=== PATIENT | male | born 1990 | race Caucasian/White ===

== ENCOUNTER 2020-07-29 18:18 | Inpatient (IN) | payer BC ==
[~2020-07-29] VITALS: Ht 167.6 cm; Wt 65.3 kg
[~2020-07-29 18:18] MED LIST: AKWA TEARS15 ML LEFT EYE; ALBUTEROL2.5 MG/3 M INH; BPO TP; CELEXA20 MG PT; CHLORHEXIDINE473 M1 PO; CLEOCIN T60 M1 TOPICAL; DOXYCYCLINE HY100 M2 PT; ERYTHROMYCIN OPT1 GM EACH EYE; KEPPRA500 MG GT; LACRI-LUBE S.O3.5 G1 LEFT EYE; LIPITOR20 MG PT; MIRALAX17 GM PT; OPTIVE SENSITI1 EACH EACH EYE
--- NOTE | 2020-07-29 18:27 | NUR ---
HIS MOM BROUGHT HIM FROM [facility], HE ANSWERS YES/NO TO QUESTIONS. THE BED ALARM IS ON AND THE CALL LIGHT IS WITHIN REACH. HE IS WEARING PAM HOSE. HE HAS AN INCISION TO THE LEFT SIDE OF HIS HEAD WITH SUTURES.
[2020-07-29] MEDS ORDERED: BACLOFEN10 MG PO (18:37)
[2020-07-29] MEDS ORDERED: ULTRAM50 MG PO (18:38)
[2020-07-29] MEDS ORDERED: NORVASC2.5 MG PO (18:39)
[2020-07-29 18:55] VITALS: BP 143/93; BMI 23.3
--- NOTE | 2020-07-29 20:00 | NUR ---
PATIENT RECEIVED LAYING IN BED. ASSESSMENT & VITAL SIGNS DONE. NO C/O PAIN OR DISTRESS. BED LOW. ALARM ON. CALL LIGHT WITHIN REACH. WILL CONTINUE TO MONITOR.
[2020-07-29 20:24] VITALS: BP 143/93
--- NOTE | 2020-07-30 00:14 | NUR ---
I have reviewed this patient and I concur with the Shift Assessment completed by the Licensed Practical Nurse today this shift.
--- NOTE | 2020-07-30 01:30 | NUR ---
PATIENT EYES CLOSED. RESPIRATIONS 18 & EVEN. BED LOW. ALARM ON. CALL LIGHT & BEDSIDE TABLE WITHIN REACH. WILL CONTINUE TO MONITOR.
--- NOTE | 2020-07-30 07:44 | NUR ---
PT RESTING IN BED WITH EYES OPEN CALL LIGHT IN REACH NO PROBLEMS WILL MONITER
[2020-07-30 07:47] LABS: BASOPHILS 0.1 % (0-2); HEMATOCRIT 41.4 % (42.0-54.0); HEMOGLOBIN 13.6 g/dL (13.5-17.5); IMMATURE GRANULOCYTES 0.4 % (0-5); LYMPHOCYTE ABS# 2.63 10x3/uL (1.32-3.57); MCH 28.5 pg (26.0-34.0); MCHC 32.9 g/dL (31.0-37.0); MCV 86.8 fL (80.0-100.0); MEAN PLATELET VOLUME 9.9 fL (7.4-10.4); MONOCYTES 11.4 % (2-11); NEUTROPHIL ABS# 3.73 10x3/uL (1.78-5.38); NEUTROPHILS 51.1 % (40-80); PLATELET COUNT 171 10x3/uL (130-400); RBC 4.77 10x6/uL (4.20-6.10); RDW 14.9 % (11.5-14.5); WBC 7.3 10x3/uL (4.8-10.8)
[2020-07-30 08:27] LABS: CALC OSMOLALITY 285 mosm/kg (275-300); CARBON DIOXIDE 30.3 mmol/L (21.0-32.0); CHLORIDE - SERUM 106 mmol/L (98-107); CREATININE - SERUM 0.9 mg/dL (0.6-1.3); GLUCOSE 88 mg/dL (74-106); POTASSIUM - SERUM 3.5 mmol/L (3.5-5.1); SODIUM 143 mmol/L (136-145); UREA NITROGEN 19 mg/dL (7-18); eGFR NON AFRICAN AMERICAN > 90 mL/min (90-120)
[2020-07-30 09:21] VITALS: BP 129/93
[2020-07-30 11:57] VITALS: Ht 167.6 cm; Wt 65.3 kg
--- NOTE | 2020-07-30 17:41 | NUR ---
PT RESTING IN BED WITH EYES OPEN CALL LIGHT IN REACH NO PROBLEMS WILL MONITER
[2020-07-30 19:00] VITALS: BP 97/54
--- NOTE | 2020-07-30 20:00 | NUR ---
PATIENT RECEIVED LAYING IN BED. ASSESSMENT & VITAL SIGNS DONE. PAIN MEDICATION EFFECTIVE. BED LOW. ALARM ON. CALL LIGHT & BEDSIDE TABLE WITHIN REACH. WILL CONTINUE TO MONITOR.
--- NOTE | 2020-07-31 03:26 | NUR ---
I have reviewed this patient and I concur with the Shift Assessment completed by the Licensed Practical Nurse today this shift.
--- NOTE | 2020-07-31 04:43 | NUR ---
PATIENT AWAKE. LEFT EYE DROP IN. BED LOW. ALARM ON. CALL LIGHT WITHIN REACH. WILL CONTINUE TO MONITOR.
--- NOTE | 2020-07-31 08:00 | NUR ---
PT RESTING IN BED WITH EYES OPEN NO CONCERNS AT THIS TIME CALL LIGHT IN REACH WILL MONITER
[2020-07-31 09:02] VITALS: BP 107/64
--- NOTE | 2020-07-31 17:46 | NUR ---
PT IN BED EATING SUPPER TOLERATING WELL CALL LIGHT IN REACH WILL MONITER
[2020-07-31 19:00] VITALS: BP 106/72
--- NOTE | 2020-07-31 19:29 | NUR ---
PATIENT RECEIVED LAYING IN BED. ASSESSMENT & VITAL SIGNS DONE. BED LOW. ALARM ON. CALL LIGHT WITHIN REACH. WILL CONTINUE TO MONITOR.
--- NOTE | 2020-08-01 03:39 | NUR ---
PATIENT EYES CLOSED. RESPIRATIONS 18 & EVEN. BED LOW. CALL LIGHT & URINAL WITHIN REACH. ALARM ON. WILL CONTINUE TO MONITOR.
--- NOTE | 2020-08-01 07:59 | NUR ---
HE HAS BEEN WALKING WITH PT. HE IS NOW IN BED. DENIES ANY PAIN OR NEEDS AT THIS TIME. HE HAS THE INCISION OVER HIS LEFT EYE TO THE BACK OF HIS EAR. THE BED ALARM IS ON AND THE CALL LIGHT IS WITHIN REACH.
[2020-08-01 08:17] LABS: BASOPHILS 0.2 % (0-2); EOSINOPHILS 3.8 % (0-7); HEMATOCRIT 42.9 % (42.0-54.0); HEMOGLOBIN 14.5 g/dL (13.5-17.5); LYMPHOCYTE ABS# 1.85 10x3/uL (1.32-3.57); LYMPHOCYTES 30.6 % (15-50); MCH 28.6 pg (26.0-34.0); MCHC 33.8 g/dL (31.0-37.0); MCV 84.6 fL (80.0-100.0); MEAN PLATELET VOLUME 9.7 fL (7.4-10.4); MONOCYTES 8.4 % (2-11); NEUTROPHIL ABS# 3.38 10x3/uL (1.78-5.38); PLATELET COUNT 178 10x3/uL (130-400); RBC 5.07 10x6/uL (4.20-6.10); RDW 14.3 % (11.5-14.5)
[2020-08-01 08:18] LABS: CALC OSMOLALITY 282 mosm/kg (275-300); CARBON DIOXIDE 28.2 mmol/L (21.0-32.0); CHLORIDE - SERUM 104 mmol/L (98-107); CREATININE - SERUM 0.8 mg/dL (0.6-1.3); GLUCOSE 95 mg/dL (74-106); POTASSIUM - SERUM 3.8 mmol/L (3.5-5.1); SODIUM 141 mmol/L (136-145); UREA NITROGEN 18 mg/dL (7-18); eGFR NON AFRICAN AMERICAN > 90 mL/min (90-120)
[2020-08-01 08:24] VITALS: BP 109/71
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
[2020-08-01 19:33] VITALS: BP 111/74
--- NOTE | 2020-08-02 01:41 | NUR ---
PT RESTING WITH EYES CLOSED, AROUSED EASILY WHILE EMPTYING 200ML OF YELLOW URINE FROM URINAL. WHEN ASKED IF HE HAD PAIN HE SHOOK HIS HEAD NO WELL WHEN I ASKED HIM IF HE NEEDED ANYTHING HE SAID SO SO AND SHOOK HIS HEAD NO. HIS BED ALARM IS ON, BED IS LOW AND CALL LIGHT IS WITHIN REACH.
[2020-08-02 07:40] VITALS: BP 109/71
--- NOTE | 2020-08-02 08:55 | NUR ---
HE IS ALERT, TOOK HIS MEDICATIONS WITHOUT ANY PROBLEMS. THE CALL LIGHT IS WITHIN REACH AND THE BED ALARM IS ON. HE HAS AN INCISION ABOVE HIS LEFT EYE AROUND TO HIS LEFT EAR.
[2020-08-02 20:02] VITALS: BP 118/67
--- NOTE | 2020-08-02 20:17 | NUR ---
AWAKE AND ALERT. RESTING IN BED WITH RESPIRATIONS UNLABORED. SUTURES INTACT TO HEAD INCISION. RIGHT ARM FLACCID. NO ACUTE DISTRESS NOTED. CALL LIGHT IN REACH.
--- NOTE | 2020-08-03 02:15 | NUR ---
RESTING IN BED WITH RESPIRATIONS UNLABORED. NO DISTRESS NOTED. CALL LIGHT IN REACH.
--- NOTE | 2020-08-03 05:54 | NUR ---
QUIET HOURS. NO ACUTE CHANGES IN CONDITION THIS SHIFT. RESTING IN BED WITH NO DISTRESS NOTED.
[2020-08-03 06:53] LABS: CALC OSMOLALITY 278 mosm/kg (275-300); CALCIUM 9.3 mg/dL (8.5-10.1); CARBON DIOXIDE 30.4 mmol/L (21.0-32.0); CHLORIDE - SERUM 104 mmol/L (98-107); CREATININE - SERUM 0.9 mg/dL (0.6-1.3); GLUCOSE 87 mg/dL (74-106); SODIUM 139 mmol/L (136-145); UREA NITROGEN 17 mg/dL (7-18); eGFR NON AFRICAN AMERICAN > 90 mL/min (90-120)
[2020-08-03 06:55] LABS: BASOPHILS 0.2 % (0-2); EOSINOPHILS 4.1 % (0-7); HEMATOCRIT 42.8 % (42.0-54.0); HEMOGLOBIN 14.2 g/dL (13.5-17.5); IMMATURE GRANULOCYTES 0.9 % (0-5); LYMPHOCYTE ABS# 1.61 10x3/uL (1.32-3.57); LYMPHOCYTES 28.5 % (15-50); MCH 28.7 pg (26.0-34.0); MCHC 33.2 g/dL (31.0-37.0); MCV 86.5 fL (80.0-100.0); MEAN PLATELET VOLUME 9.9 fL (7.4-10.4); MONOCYTES 11.3 % (2-11); NEUTROPHIL ABS# 3.11 10x3/uL (1.78-5.38); PLATELET COUNT 189 10x3/uL (130-400); RBC 4.95 10x6/uL (4.20-6.10); RDW 14.6 % (11.5-14.5); WBC 5.7 10x3/uL (4.8-10.8)
[2020-08-03 08:05] VITALS: BP 115/74
--- NOTE | 2020-08-03 10:12 | NUR ---
Nutrition Re-Assessment: Diet: Regular PO intake: 90-100% x last 9 meals Last BM: 08/02/20 Wt: 144# (07/30/20) Meds noted: miralax Labs reviewed Estimated nutrition needs: [id number] luciano (25-30 ABW), 65-78gms protein (1-1.2), 1625-1950mL fluid (or per MD) Nutrition diagnosis: Increased protein needs r/t increased demand for healing AEB recent cranial surgical wound. Nutrition goals: -PO intake continue =/>75% meals -Meet fluid needs -Stable weight DHS -Documentation of wound healing Recommendations/Interventions: -Continue Regular diet. Will continue to honor food preferences. -RD will will continue to monitor PO intake and wt trend. -RD will follow-up within 7 days.
--- NOTE | 2020-08-03 16:00 | NUR ---
CARE TEAM MEETING: PATIENT ADMITTS TO REHAB FROM AN OUTSIDE FACILITY. PATIENT IS DOING WELL IN THERAPY. HIS TENAIVE DC DATE IS 08/08/20. WILL CONTINUE TO FOLLOW WITH PATIENT
--- NOTE | 2020-08-03 19:10 | NUR ---
PT IN BED, NO IMMEDIATE NEEDS NOTED, FLUIDS/CL WITHIN REACH
[2020-08-03 20:40] VITALS: BP 120/79
--- NOTE | 2020-08-04 00:13 | NUR ---
PT ARTIFICIAL TEARS DUE AT 0000 NOT GIVEN, PT DOES NOT WANT TO BE AWAKENED FOR EYE DROPS PER PT.
[2020-08-04 07:56] VITALS: BP 115/64
[2020-08-04 19:30] VITALS: BP 122/82
--- NOTE | 2020-08-05 02:28 | NUR ---
PT RESTING WITH EYES CLOSED. RESPIRATIONS EVEN AND UNLABORED. 250ML OF YELLOW URINE EMPTIED FROM URINAL. HIS BED IS LOW, BED ALARM ON AND CALL LIGHT IS WITHIN REACH.
[2020-08-05 07:48] VITALS: BP 121/83
--- NOTE | 2020-08-05 09:14 | NUR ---
HE IS IN BED, HAS PT THIS MORNING. HE DENIES ANY PAIN. THE CALL LIGHT IS WITHIN REACH AND THE BED ALARM IS ON. HE HAS SUTURES TO THE LEFT SIDE OF HIS HEAD.
--- NOTE | 2020-08-05 13:56 | NUR ---
CLINICAL UPDATES FAXED REQUESTING MORE DAYS . [facility] , AUTH. # [id number] WITH FAX CONFORMATION RECIEVED
[2020-08-05 19:34] VITALS: BP 123/77
--- NOTE | 2020-08-05 19:55 | NUR ---
PATIENT RECEIVED SITTING UP IN BED. ASSESSMENT & VITAL SIGNS DONE. NO C/O PAIN OR DISTRESS AT THIS TIME. BED LOW. ALARMM ON. CALL LIGHT & BEDSIDE TABLE WITHIN REACH. WILL CONTINUE TO MONITOR.
--- NOTE | 2020-08-06 01:12 | NUR ---
I have reviewed this patient and I concur with the Shift Assessment completed by the Licensed Practical Nurse today this shift.
--- NOTE | 2020-08-06 04:24 | NUR ---
PATIENT EYES CLOSED. RESPIRATIONS 18 & EVEN. BED LOW. ALARM ON. CALL LIGHT WITHIN REACH. WILL CONTINUE TO MONITOR.
[2020-08-06 07:00] VITALS: BP 114/83
--- NOTE | 2020-08-06 08:30 | NUR ---
HE IS ALERT, EATING BREAKFAST. TOOK HIS MEDICATIONS WITHOUT ANY PROBLEMS. THE CALL LIGHT IS WITHIN REACH AND THE BED ALARM IS ON.
[2020-08-06 19:10] VITALS: BP 119/87
--- NOTE | 2020-08-06 19:35 | NUR ---
PATIENT RECEIVED SITTING UP IN BED. ASSESSMENT & VITAL SIGNS DONE. NO C/O PAIN OR DISTRESS AT THIS TIME. ALARM ON. BED LOW. CALL LIGHT WITHIN REACH. WILL CONTINUE TO MONITOR.
--- NOTE | 2020-08-07 00:58 | NUR ---
I have reviewed this patient and I concur with the Shift Assessment completed by the Licensed Practical Nurse today this shift.
[2020-08-07 10:52] VITALS: BP 104/73
[2020-08-07 19:00] VITALS: BP 122/84
--- NOTE | 2020-08-07 20:00 | NUR ---
PATIENT RECEIVED SITTING UP IN BED. ASSESSMENT & VITAL SIGNS DONE. NO C/O PAIN OR DISTRESS. ALARM ON. CALL LIGHT WITHIN REACH. WILL CONTINUE TO MONITOR.
--- NOTE | 2020-08-08 03:45 | NUR ---
PATIENT EYES CLOSED. RESPIRATIONS 16 & EVEN. BED LOW. URINAL & BEDSIDE TABLE, & CALL LIGHT WITHIN REACH. WILL CONTINUE TO MONITOR.
--- NOTE | 2020-08-08 08:00 | NUR ---
PT RESTING IN BED WITH EYES OPEN CALL LIGHT IN REACH WILL MONITER
[2020-08-08 08:30] VITALS: BP 117/82
[2020-08-08 09:28] LABS: BASOPHILS 0.6 % (0-2); EOSINOPHILS 3.6 % (0-7); HEMOGLOBIN 13.8 g/dL (13.5-17.5); IMMATURE GRANULOCYTES 0.6 % (0-5); LYMPHOCYTES 28.1 % (15-50); MCH 28.8 pg (26.0-34.0); MCHC 32.9 g/dL (31.0-37.0); MCV 87.7 fL (80.0-100.0); MONOCYTES 8.1 % (2-11); NEUTROPHIL ABS# 3.15 10x3/uL (1.78-5.38); PLATELET COUNT 192 10x3/uL (130-400); RBC 4.79 10x6/uL (4.20-6.10); RDW 15.1 % (11.5-14.5); WBC 5.3 10x3/uL (4.8-10.8)
[2020-08-08 09:41] LABS: CALC OSMOLALITY 283 mosm/kg (275-300); CARBON DIOXIDE 30.2 mmol/L (21.0-32.0); CHLORIDE - SERUM 104 mmol/L (98-107); CREATININE - SERUM 1.1 mg/dL (0.6-1.3); GLUCOSE 122 mg/dL (74-106); POTASSIUM - SERUM 3.8 mmol/L (3.5-5.1); SODIUM 141 mmol/L (136-145); UREA NITROGEN 17 mg/dL (7-18); eGFR NON AFRICAN AMERICAN 83 mL/min (90-120)
--- NOTE | 2020-08-08 18:35 | NUR ---
PT RESTING IN BED WITH EYES OPEN CALL LIGHT IN REACH WILL MONITER
[2020-08-08 21:54] VITALS: BP 118/80
[2020-08-09 07:46] VITALS: BP 125/91
--- NOTE | 2020-08-09 08:00 | NUR ---
PT RESTING IN BED WITH EYES OPEN CALL LIGHT IN REACH WILL MONITER
--- NOTE | 2020-08-09 11:06 | NUR ---
Nutrition Re-Assessment: Diet: Regular PO intake: 95-100% x last 12 meals Last BM: 08/05/20 Wt: 144# (07/30/20), no new weight Meds noted: miralax Labs noted: Glu 122(H) Estimated nutrition needs: [id number] luciano (25-30 Act), 65-78gms protein (1-1.2), 1625-1950mL fluid (or per MD) Nutrition diagnosis: Increased protein needs r/t increased demand for healing AEB surgical wound. Nutrition goals: -PO intake =/>75% meals -Meed fluid needs -Stable weight DHS -Documented wound healing Recommendations/Interventions: -Recommend continue current diet. Will continue to honor food preferences. -RD will follow-up within 7 days.
--- NOTE | 2020-08-09 18:08 | NUR ---
PT RESTING IN BED WITH EYES OPEN CALL LIGHT IN REACH NO PROBLEMS WILL MONITER
--- NOTE | 2020-08-09 19:31 | NUR ---
PT IN BED, NO IMMEDIATE NEEDS NOTED OR VERBALIZED, FLUIDS/CL WITHIN REACH, ALARMS ON AND WORKING
[2020-08-09 20:28] VITALS: BP 125/84
[2020-08-10 07:38] VITALS: BP 133/92
--- NOTE | 2020-08-10 14:35 | NUR ---
CARE TEAM MEETING: PATIENT IS DOING WELL IN THERAPY . HIS TENATIVE DISCHARGE DATE IS 08/12/20. WILL CONTINUE TO FOLLOW WITH PATIENT AND WILL ASSIST WITH NEEDS.
--- NOTE | 2020-08-10 19:15 | NUR ---
PT OFF UNIT AT THIS TIME WITH FAMILY MEMBER
--- NOTE | 2020-08-10 19:45 | NUR ---
PT BACK IN ROOM, IN BED, ASSESSMENT PER FLOW SHEET, VS OBTAINED PER CUSTOM CLOTHIER, PT REPORTS FLATUS, BM TODAY, AND USING URINAL WITH NO DIFFICULTY, EMPTIED 200 MLS OF DARK YELLOW URINE, PT INST ON AND ENC TO USE I.S., REPORTS USING IT INST, PT INST TO USE CALL LIGHT WHEN NEEDING TO GET UP TO BR OR CHAIR, PT VERBALIZES UNDERSTANDING, DENIES NEEDS OR PAIN AT THIS TIME, FALL PRECUATIONS IN PLACE
[2020-08-10 20:30] VITALS: BP 120/82
--- NOTE | 2020-08-10 21:46 | NUR ---
PT AWAKE, ADM 2100 MEDS PER MD ORDERS, SEE EMAR, PT DENIES NEEDS OR PAIN AT THIS TIME
--- NOTE | 2020-08-10 22:33 | NUR ---
PT RESTING WITH EYES CLOSED, RESP QUIET, NO DISTRESS NOTED, LEFT UNDISTURBED AT THIS TIME
--- NOTE | 2020-08-11 00:07 | NUR ---
PT RESTING WITH EYES CLOSED, RESP QUIET, NO DISTRESS NOTED, LEFT UNDISTURBED AT THIS TIME
--- NOTE | 2020-08-11 02:16 | NUR ---
PT RESTING WITH EYES CLOSED, RESP QUIET, NO DISTRESS NOTED, LEFT UNDISTURBED AT THIS TIME
--- NOTE | 2020-08-11 04:30 | NUR ---
PT RESTING WITH EYES CLOSED, RESP QUIET, NO DISTRESS NOTED, LEFT UNDISTURBED AT THIS TIME, EMPTIED 450 MLS OF DARK YELLOW URINE FROM URINAL
[2020-08-11 08:14] VITALS: BP 120/79
--- NOTE | 2020-08-11 08:14 | NUR ---
HE HAS BEEN WORKING WITH THERAPY. HE TOOK HIS MEDICATIONS WITHOUT ANY PROBLEMS. THE BED ALARM IS ON AND THE CALL LIGHT IS WITHIN REACH.
[2020-08-11 20:36] VITALS: BP 117/80
--- NOTE | 2020-08-11 23:12 | NUR ---
I WAS CHECKING PTS CHART FOR INSTRUCTIONS REGARDING REMOVAL OF KYE TO HIS HEAD I NOTICED ON HIS DISCHARGE PAPERWORK FROM [facility], THAT HE HAD A TELEMEDICINE NURSE APPT ON August AT 0930, #[phone]. UNAWARE IF PT OR FAMILY MEMBER WAS ABLE OR KNEW TO MAKE THIS CALL. WILL PASS ALONG TO DAYSHIFT NURSE AND WILL GIVE PT THIS DISCHARGE PAPERWORK FROM [facility].
--- NOTE | 2020-08-12 01:18 | NUR ---
PT RESTING WITH EYES CLOSED. RESPIRATIONS EVEN AND UNLABORED. 150ML OF URINE EMPTIED FROM URINAL. BED IS LOW, BED ALARM ON AND CALL LIGHT IS WITHIN REACH.
[2020-08-12 08:11] VITALS: BP 117/79
--- NOTE | 2020-08-12 09:04 | NUR ---
PATIENT IS ALERT/ORIENT. RESTING IN BED. BED ALARM ON. CALL LIGHT WITHIN REACH. VOICES NO NEEDS AT THIS TIME. WILL CONTINUE WITH PLAN OF CARE
--- NOTE | 2020-08-12 11:04 | NUR ---
PATIENT DISCHARGING HOME TODAY WITH FAMILY. [facility] WILL PROVIDE THERAPY AT HOME. NO NEW DME NEEDED AT THIS TIME. DR. STAFFORD 08/25/20 @ 2:00, DR. ROONEY OFFICE TO CALL PATIENT AND IF HE HAS NOT HEARD FROM THEM CALL [facility] FOR APPOINTMENT. OLIVA SIGNED, IMM SERVED AND EXPLAINED, ONE GIVEN TO PATIENT AND ONE FILED IN CHART. DISCHARGE INSTRUCTIONS FAXED TO PCP, HOME HEALTH , [facility] , AUTH. # [id number], AND REVIEWED WITH PATIENT AND FAMILY.
--- NOTE | 2020-08-12 13:17 | NUR ---
DR aKtiana SIEGEL INTO SEE PATIENT. DISCHARGE ORDERS WRITTEN.
--- NOTE | 2020-08-12 13:35 | NUR ---
DISCHARGE INSTRUCTIONS GONE OVER WITH PATIENT AND PATIENTS MOTHER. DISCHARGE MEDICATIONS GONE OVER WITH PATIENT AND PATIENTS MOTHER. PATIENT HELPED OUT TO CAR BY STAFF.
== END 2020-08-12 15:03 | disposition home health service (06) | DRG 559 ==
LOC: D.REHAB 18:18
PROVIDERS: ADMIT Emergency Medicine; ATTEND Emergency Medicine
DX: S02.91XD Unspecified fracture of skull, subsequent encounter for fracture with routine healing (principal); G93.6 Cerebral edema; Z86.73 Personal history of transient ischemic attack (TIA), and cerebral infarction without residual deficits; Z48.89 Encounter for other specified surgical aftercare